=== PATIENT | male | born 1960 | race Caucasian/White ===

== ENCOUNTER 2023-08-05 13:26 | Emergency (ER) | payer BC ==
[~2023-08-05] VITALS: Ht 182.8 cm; Wt 93.0 kg
[2023-08-05] MEDS ORDERED: NAPROSYN500 MG PO (17:17)
== END 2023-08-05 17:30 | disposition home or self-care (01) ==
LOC: ED 13:26
DX: S01.112A Laceration without foreign body of left eyelid and periocular area, initial encounter (principal); S49.92XA Unspecified injury of left shoulder and upper arm, initial encounter; R07.81 Pleurodynia; W11.XXXA Fall on and from ladder, initial encounter; Y93.89 Activity, other specified; Y92.89 Other specified places as the place of occurrence of the external cause; Y99.8 Other external cause status

== ENCOUNTER → 2024-03-05 | Outpatient (CLI) | payer BC ==
[~2024-03-05] MED LIST: NAPROSYN500 MG PO
== END | disposition home or self-care (01) ==
LOC: CARD 02-07 10:30
PROVIDERS: ATTEND Internal Medicine Cardiovascular Disease
DX: I49.3 Ventricular premature depolarization (principal); R00.1 Bradycardia, unspecified